=== PATIENT | male | born 1980 | race Caucasian/White ===

== ENCOUNTER 2018-11-18 21:28 | Emergency (ER) | payer BC ==
[~2018-11-18] VITALS: Ht 180.3 cm; Wt 83.9 kg
[2018-11-18 21:44] VITALS: BP 126/88
== END 2018-11-18 22:30 | disposition home or self-care (01) ==
LOC: ER 21:31
DX: L03.116 Cellulitis of left lower limb (principal); I10 Essential (primary) hypertension; F41.9 Anxiety disorder, unspecified; Z88.0 Allergy status to penicillin